=== PATIENT | male | born 1970 | race Caucasian/White ===

== ENCOUNTER 2022-11-16 19:57 | Inpatient (IN) | payer BC, OTHER, SELFPAY ==
--- OUTSIDE RECORDS SUMMARY | 2022-11-16 20:01 | XMS REPORT | Continuity of Care Document ---
:1970 Author Organization [facility] t Address [address] [place] [address] [place] [address] Care Team Providers Name Role Phone DR JOHN PAUL VILCHIS PACIFICA Primary Care Physician Unavailable TRINITY BRAY Attending Clinician Unavailable BAO METCALF Attending Clinician Unavailable NATE ROD Attending Clinician Unavailable MAME, DR COKER Attending Clinician Unavailable TRINITY BRAY Admitting Clinician Unavailable BAO METCALF Admitting Clinician Unavailable NATE ROD Admitting Clinician Unavailable DR JOHN PAUL VILCHIS Admitting Clinician Unavailable GAYATRI FITZPATRICK Admitting Clinician Unavailable TERRANCE VALERIO Admitting Clinician Unavailable Payers Payer Name Policy Type Policy Number Effective Date Expiration Date Keely disla [id number] 1961 00:00:00 Problems Condition Condition Condition Status Onset Resolution Last Treating Co mments Source Name Details Category Date Date Treatment Clinician Date Chronic Chronic Problem Active 2019-[address] [facility] obstructiv obstructiv 0-18 [facility] e lung 00:00: Memoria disease disease 00 l (LUF/LI V/SA) Acute Acute Problem Active 2018-[address] [facility] exacerbati exacerbati 2-26 [facility] of on of 00:00: Memoria chronic chronic 00 l obstructiv obstructiv (L UF/LI e airways e airways V/SA ) disease disease Influenza Influenza Problem Active 2016-[address] [facility] (LUF/LI V/SA) Acute Acute Problem Active [facility] exacerb[facility] exacerbati 6-03 [facility] of on of 00:00: Memoria chronic chronic 00 l obstructiv obstructiv (L UF/LI e airways e airways V/SA ) disease disease Bronchitis Bronchitis Problem Active [facility] (LUF/LI V/SA) Allergies, Adverse Reactions, Alerts Allergy Allergy Status Severity Reaction(s) Onset Inactive Treating Comm ents Source Name Type Date Date Clinician No Known DA Active Unknown [facility] 03[facility]09 [facility] Mem[facility] s 00 l (LUF/LI V/SA) Social History Smoking Status Start Date Stop Date Source Former smoker [facility] orial (LUF/RYNE/SA) Medications Ordered Filled Start Stop Current Ordering Indication Dosage Frequency Signature Comments Components Source Medication Medication Date Date Medication? Clinician (SIG) Name Name Doxycycline Doxycycline Yes 100mg 2xD orally [address] [facility] Hyclate Hyclate times per Luke s Oral Oral day Memoria l (LUF/LI V/SA) Prednisone Prednisone Yes 60mg 1xD orally [facility] (administe Memoria r with l food or (LUF/LI milk) V/SA) Doxycycline Doxycycline Yes 100mg [facility]xD [facility] Hyclate Hyclate [facility] l (LUF/LI V/SA) predniSONE predniSONE Yes 60mg 1xD [facility]oria l (LUF/LI V/SA) Doxycycline Doxycycline Yes 100mg 2xD orally [address] [facility] Hyclate Hyclate times per Luke s day Memoria l (LUF/LI V/SA) predniSONE predniSONE Yes 60mg 1xD orally [facility] (administe Memoria r with l food or (LUF/LI milk) V/SA) Doxycycline Doxycycline Yes 100mg [address]xD [facility] Hyclate Hyclate [facility] (LUF/LI V/SA) predniSONE predniSONE Yes 60mg 1xD [facility] l (LUF/LI V/SA) Doxycycline Doxycycline Yes 100mg 2xD orally [address] [facility] Hyclate Hyclate times per Luke s day Memoria l (LUF/LI V/SA) predniSONE predniSONE Yes 60mg 1xD orally [facility] (administe Memoria r with l food or (LUF/LI milk) V/SA) Vital Signs Vital Name Observation Time Observation Value Comments Source Weight 2019-12-25 17:22:00 86.9 KG Height 2019-12-25 17:22:00 177.8 CM Height 2019-03-06 21:30:00 185.42 CM BP Systolic 2019-12-25 19:45:00 117 mm[Hg] [facility] (LUF/RYNE/SA) BP Diastolic 2019-12-25 19:45:00 61 mm[Hg] [facility] (LUF/RYNE/SA) O2% BldC Oximetry 2019-12-25 19:43:00 93 % [facility] (LUF/RYNE/SA) Pulse Rate 2019-12-25 19:43:00 86 /min [facility] (LUF/RYNE/SA) Heart Rate 2019-12-25 18:45:00 101 /min [facility] (LUF/RYNE/SA) Respiratory Rate 2019-12-25 18:45:00 20 /min [facility] (LUF/RYNE/SA) Body Temperature 2019-12-25 17:22:00 99 [degF] [facility] (LUF/RYNE/SA) Height 2019-12-25 17:22:00 70 [in_i] [facility] (LUF/RYNE/SA) Weight 2019-12-25 17:22:00 86.9 kg [facility] (LUF/RYNE/SA) BMI (Body Mass Index) 2019-12-25 17:22:00 27.7 kg/m2 [facility] (LUF/RYNE/SA) Body Temperature 2017-11-24 01:36:00 97.9 F [facility] (LUF/RYNE/SA) Respiratory Rate 2017-11-24 01:36:00 15 /min [facility] (LUF/RYNE/SA) O2% BldC Oximetry 2017-11-24 01:36:00 96 % [facility] (LUF/RYNE/SA) BP Systolic 2017-11-24 01:36:00 131 mm[Hg] [facility] (LUF/RYNE/SA) BP Diastolic 2017-11-24 01:36:00 83 mm[Hg] [facility] (LUF/RYNE/SA) Height 2017-11-24 01:36:00 74 in [facility] (LUF/RYNE/SA) Weight Measured 2017-11-24 01:36:00 207 lbs [facility] (LUF/RYNE/SA) BMI (Body Mass Index) 2017-11-24 01:36:00 26.8 [facility] (LUF/RYNE/SA) Body Temperature 2017-03-09 15:14:00 99.5 F [facility] (LUF/RYNE/SA) Respiratory Rate 2017-03-09 13:56:00 24 /min [facility] (LUF/RYNE/SA) O2% BldC Oximetry 2017-03-09 13:56:00 93 % [facility] (LUF/RYNE/SA) BP Systolic 2017-03-09 13:56:00 102 mm[Hg] [facility] (LUF/RYNE/SA) BP Diastolic 2017-03-09 13:56:00 62 mm[Hg] [facility] (LUF/RYNE/SA) Height 2017-03-09 13:56:00 75 in [facility] (LUF/RYNE/SA) Weight Measured 2017-03-09 13:56:00 210 lbs [facility] (LUF/RYNE/SA) BMI (Body Mass Index) 2017-03-09 13:56:00 26.3 [facility] (LUF/RYNE/SA) Body Temperature 2017-02-02 05:38:00 98.8 F [facility] (LUF/RYNE/SA) Respiratory Rate 2017-02-02 05:38:00 18 /min [facility] (LUF/RYNE/SA) O2% BldC Oximetry 2017-02-02 05:38:00 94 % [facility] (LUF/RYNE/SA) BP Systolic 2017-02-02 05:38:00 119 mm[Hg] [facility] (LUF/RYNE/SA) BP Diastolic 2017-02-02 05:38:00 87 mm[Hg] [facility] (LUF/RYNE/SA) Height 2017-02-02 05:38:00 72 in [facility] (LUF/RYNE/SA) Weight Measured 2017-02-02 05:38:00 209.43 lbs [facility] Keely [facility] (LUF/RYNE/SA) BMI (Body Mass Index) 2017-02-02 05:38:00 28.6 [facility] (LUF/RYNE/SA) Procedures Procedure Date / Time Performed Performing Clinician Sourc e Vasectomy [facility] orial (LUF/RYNE/SA) Encounters Start End Encounter Admission Attending Care Care Encounter Source Date/Time Date/Time Type Type Clinicians Facility Department ID 2022-08-14 2022-08-14 OTHER 3 [facility] [id number] [facility] 07:27:00 23:59:00 CHEST PAIN [facility]ITY [facility] [address] V/SA) [facility] [place] [address] 2022-08-14 2022-08-[address] [facility] [id number] [facility] 00:00:00 00:00:00 [place] [id number] [facility], [id number] Memor ia [id number] (LUF/LI A[address], V/[place]) [place] [address] 2022-08-14 2022-08-14 Inpatient [facility] [id number] [facility] 00:00:00 00:00:00 [place] [id number] [facility], [id number] Memor ia [id number] (LUF/LI AVE, V/[place]) [place] [address] 2022-06-17 2022-06-17 Outpatient 3 JAIRON BRAY GAET [id number] [facility] [address] 08:30:00 08:30:00 TRINITY [facility] l (LUF/LI V/SA) 2022-02-26 2022-02-26 Outpatient 3 JAIRON BRAY GAET [id number] 02:30:00 02:30:00 [facility] [facility] (LUF/LI V/SA) 2019-12-25 2019-12-25 COPD E TEA, [facility] [place] [id number] [facility] 17:08:00 20:21:00 UNSPECIFIE [facility] [place] u[place] [address] (LUF/LI [address], V/[place]) [place] [address] 2018-01-19 2018-01-19 Inpatient 3 MAME, [facility] [place] [address] [id number] [facility] [address] 09:07:00 23:59:00 JOHN PAUL [facility] [address]LUF/LI A[address], V/SA) [place] [address] 2017-11-24 2017-11-24 TYPE 2 DM E JENNRI, [facility] [place] [place] [address] [id number] [facility] [address] 01:25:00 04:00:00 W/HYPERGLY [facility] [address], V/SA) [facility] [place] [address] 2017-03-09 2017-03-09 COPD WITH ADY MARTINEZ [facility] [id number] [facility] [address] 13:21:00 17:06:00 ACUTE [facility] EXACERBATI [facility] ia ON [address] (LUF/LI [address], V/[place]) [place] [address] 2017-02-23 2017-02-23 VOMITING O MAME, [facility] [place] [address] [id number] [facility] [address] 10:39:00 23:59:00 [facility] [address] (LUF/LI [address], V/[place]) [place] [address] 2017-02-02 2017-02-02 NONINFECTI 1 IMAN, [facility] [place] [address] [id number] [facility] [address] 05:19:00 06:55:00 VE GE & TERRANCE [facility] COLITIS [place], [facility] UNS [address] (LUF/LI [address], V/SA) [place] [address] Results Test Description Test Time Test Comments Results Result Sour e Comments XR CHEST AP/PA 1 2019-12-25 [facility] 18:17:57 CHARLEY Riggs [facility]Name: JANNET ATKINSON : [id number] Sex: M *Procedures: XR CHEST AP/PA 1 VIEWExam Date: 12/25/2019 5:28 PMOrdering Physician: MARTHA WEAVERClinical Indication: [id number]: DyspneaComparison: Chest radiograph 03/06/19Findings:Skyler hnique: Single frontal portable radiograph of the chest.Medical devices: EKG leads and wires overlie the thorax.Pneumothorax: No pneumothorax.Lungs: Emphysematous changes of the lungs. No focal consolidation.Effusi on: None.Aorta: No significant abnormality.Heart: No acute radiographic abnormalities.Bones: Degenerative changes of the shoulders and spine.Upper abdomen: Limited evaluation is without significant abnormality.Impressi on:Emphysematous changes of lungs. No acute radiographic abnormalities.This final report was electronically signed by Dr Rosette Pederson MD12/25/2019 6:11 PMDictated By: ROSETTE OJEDADate: 12/25/2019 18:11 STAT LAB CHEM 8 2019-12-25 17:58:00 Test Item Value Reference Range Interpretation Comme nts Sodium (test code = NA) 141 mmol/l 138-146 Potassium (test code = K) 4.0 mmol/l 3.5-4.9 Chloride (test code = CL) 103 mmol/l 98-109 IONIZED CALCIUM (test code = ICA) 1.18 1.12-1.32 A CO2 (test code = CO2) 25 mmol/l 24-29 Glucose (test code = GLU) 234 mg/dl 70-105 H BUN (test code = BUN) 12 mg/dl 6-17 Creatinine (test code = CREA) 1.0 mg/dl 0.6-1.3 [facility] LAB CBC WITH AUTO [id number] 17:57:00 Test Item Value Reference Range Interpretation Comments WBC (test code = WBC) 6.62 10\\S\\3/ul 4.80-10.80 RBC (test code = RBC) 5.11 10\\S\\6/ul 4.70-6.10 Hemoglobin (test code = HGB) 15.8 gm/dl 14.0-18.0 Hematocrit (test code = HCT) 45.1 % 42.0-50.0 MCV (test code = MCV) 88.3 fL 80.0-94.0 MCH (test code = MCH) 30.9 pg 27.0-31.0 MCHC (test code = MCHC) 35.0 gm/dl 33.0-37.0 Platelet (test code = PLT) 215 10\\S\\3/ul 130-400 RDW (test code = RDWVC) 12.2 % 11.5-14.5 MPV (test code = MPV) 9.8 fL 7.4-10.4 A NE% (test code = NE) 59.2 % 42.0-75.0 LY% (test code = LY) 21.6 % 13.0-42.0 MO% (test code = MO) 12.4 % 4.0-14.0 EO% (test code = EO) 6.0 % 1.0-3.0 H BA% (test code = BA) 0.6 % 1.0-3.0 L IG% (test code = IG%) 0.2 % 0.0-0.4 [place] [address] TROPONIN-I [id number] 23:23:00 Test Item Value Reference Range Interpretation Comments Troponin-I (test 0.000 ng/ml 0.000-0.034 The 99th Pe rcentile URL code = TROP) is 0.045 ng/mL for the Siemens Seymour T roponin I. The Joint [facility] mervin Society of Cardiology/veronica uab medical westn College of Card iology (ESC/ACC) and t he [facility] monse Standards of La boratory Practices (NACB ) recommends that the diagnosis of AM I includes the presence of clinical history suggest alex of Acute Coronary Syndrome (ACS) and a max imum concentration o f cardiac troponin exceed ing the 99th percentile of a normal referenc e population [upp er reference limit (URL)] on at least one oc casion during the firs t 24 hours after the clini kellen event. [facility] ANGIO CHEST W [id number] 22:39:23 PROCEDURE INFORMATION:Exam: CT Angiography Chest With ContrastExam date and time: 03/06/2019 9:57 PMAge: 48 years oldClinical indication: Shortness of breath; Patient HX: Copd, smokerTECHNIQUE:Imaging protocol: Computed tomographic angiography of the chest withintravenous contrast.3D rendering: MIP and/or 3D reconstructed images were created by thetechnologist.Radiation optimization: All CT scans at this facility use at least one of thesedose optimization techniques: automated exposure control; mA and/or kVadjustment per patient size (includes targeted exams where dose is matched toclinical indication); or iterative reconstruction.Contrast material: OMNI 350; Contrast volume: 100 ml; Contrast route: IV;COMPARISON:CT ANGIO CHEST W/WO CONTRAST 08/10/2015 2:31 PMFINDINGS:Pulmonary arteries: Normal. Nopulmonary emboli.Aorta: Unremarkable. No aortic aneurysm. No aortic dissection.Lungs: Moderate centrilobular emphysematous disease. Poorly defined small areaof groundglass disease in the right upper lobe.Pleural space: Unremarkable. No pneumothorax. No pleural effusion.Heart: Unremarkable. No cardiomegaly. No pericardial effusion.Lymph nodes: Unremarkable. No enlarged lymph nodes.Bones/joints: Unremarkable. No acute fracture.Soft tissues: The soft tissues of the axilla, neck and chest wall areunremarkable.Other findings: The visualized superior portions of the abdomen areunremarkable.IMPRESSION:Moderate centrilobular emphysematous disease. No evidence of pulmonary embolus.Faint area of groundglassdisease in the right upper lobe. Followup chest CT in6 months recommendedThis Final report was electr onically signed by Richi Sinha MD on 06 Mar 201910:39 PM CDT.Dictated By: RICHI SINHADate: 03/06/2019 22:39[facility] [place] [address] XR CHEST 2 PA LATERAL 2019-03-06 22:36:18Procedure: ED2 XR CHEST 2 PA LATERALOrder date: 03/06/2019 9:25 PMOrdering Provider: NATE Guajardoinical Indication: [id number]: CoughComparison: August 10, 2015Findings:Cardiomediastinal silhouette is within normal limits.Flattening of the diaphragm with increased AP diameter of the chest, compatiblewithmorphologic changes seen in COPD. Otherwise, no asymmetric consolidationsor other airspace opacities.No pleural effusion or pneumothorax. Osseous structures are nonacute.No evidence of active tuberculosis.Impression:1. No acute cardiopulmonary process.2. COPD.This final report was electronically signed by Dr Letty Rod MD 03/06/201910:29 PMDictated By: LETTY RODDate: 03/06/2019 22:29[facility] [place] [address] [id number] 21:56:00 Test Item Value Reference Range Interpretation Comments Sodium (test code = NA) 142 mmol/l 128-145 Potassium (test code = K) 3.5 mmol/l 3.6-5.1 L CO2 (test code = CO2) 29 mmol/l 18-33 Chloride (test code = CL) 103 mmol/l 98-108 Glucose (test code = GLU) 146 mg/dl 73-118 H Calcium (test code = CALC) 9.4 mg/dl 8.0-10.3 BUN (test code = BUN) 8 mg/dl 7-22 Creatinine (test code = CREA) 1.1 mg/dl 0.6-1.2 [facility] [id number] 21:47:00 Test Item Value Reference Range Interpretation Comments WBC (test code = WBC) 12.2 10\\S\\9/L 3.5-10.0 H LY% (test code = LY) 18.3 % 15.0-50.0 MIDS% (test code = MIDS) 5.6 % 2.0-15.0 Granulocytes % (test code = 76.1 % 35.0-80.0 GRA%) Lymphocytes (test code = 2.2 10\\S\\9/L 0.5-5.0 LYMPH) MID (test code = MID) 0.7 10\\S\\9/L 0.1-1.5 Granulocytes (test code = 9.3 10\\S\\9/L 1.2-8.0 H GRAN) RBC (test code = RBC) 5.18 10\\S\\12/L 3.50-5.50 Hemoglobin (test code = HGB) 15.3 gm/dl 11.5-16.5 Hematocrit (test code = HCT) 46.6 % 35.0-55.0 MCV (test code = MCV) 89.9 fL 75.0-100.0 MCH (test code = MCH) 29.6 pg 25.0-35.0 MCHC (test code = MCHC) 32.9 gm/dl 31.0-38.0 RDW % (test code = RDW%) 13.7 % 11.0-16.0 Platelet (test code = PLT) 249 10\\S\\9/L 100-400 MPV (test code = MPV) 8.6 fL 8.0-11.0 A [facility] FLU [id number] 21:45:00 Test Item Value Reference Range Interpretation Comments Flu A Screen (test code = FLUA) Negative Flu B Screen (test code = FLUB) Negative [facility] HEAD W/O [id number] 11:30:43 Procedure: TIC CT HEAD W/O CONTRASTOrder date: 01/19/2018 9:00 AMOrdering Provider: MR TAIWO ROWELLATTClinical Indication: October 29, 2012Comparison: NoneTechnique: Using a helical scanner, sequential axial imaging of the brain wasobtained without the administration of intravenous contrast. The exam wasob tained from the skull base to vertex.This exam was performed according to the our departmental dose-optimizationprogram which includes automated exposure control, adjustment of the mA and/orkV according to patient size and/or use of iterative reconstruction techniques.Findings:Normal-appearing sy and white matter with appropriate sulcation and normalparenchymal volume.There is no midline shift or hydrocephalus.There is no acute intracranial hemorrhage or mass effect.There is no CT evidence for acute cortical infarct.The calvarium is intact. There is no fracture.There is no lytic or sclerotic lesion.The visualized paranasal sinuses and mastoid air cells are clear.IMPRESSION:1. Negative CT scan ofthe brain without intravenous contrast administration.This final report was electronically signed byDr Letty Rod MD 01/19/201811:24 AMDictated By: LETTY RODDate: 01/19/2018 11:24MM OF [address] 2017-11-24 03:49:00 Test Item Value Reference Range Interpretation Comments Sodium (test code = NA) 138 mmol/l 128-145 Potassium (test code = K) 4.5 mmol/l 3.6-5.1 CO2 (test code = CO2) 28 mmol/l 18-33 Chloride (test code = CL) 99 mmol/l 98-108 Glucose (test code = GLU) 287 mg/dl 73-118 H Calcium (test code = CALC) 8.8 mg/dl 8.0-10.3 BUN (test code = BUN) 15 mg/dl 7-22 Creatinine (test code = CREA) 1.1 mg/dl 0.6-1.2 [facility] [id number] 03:47:00 Test Item Value Reference Range Interpretation Comments WBC (test code = WBC) 12.3 10\\S\\9/L 3.5-10.0 H LY% (test code = LY) 11.5 % 15.0-50.0 L MIDS% (test code = MIDS) 3.3 % 2.0-15.0 Granulocytes % (test code = 85.2 % 35.0-80.0 H GRA%) Lymphocytes (test code = 1.4 10\\S\\9/L 0.5-5.0 LYMPH) MID (test code = MID) 0.4 10\\S\\9/L 0.1-1.5 Granulocytes (test code = 10.5 10\\S\\9/L 1.2-8.0 H GRAN) RBC (test code = RBC) 5.13 10\\S\\12/L 3.50-5.50 Hemoglobin (test code = HGB) 15.3 gm/dl 11.5-16.5 Hematocrit (test code = HCT) 44.6 % 35.0-55.0 MCV (test code = MCV) 87.0 fL 75.0-100.0 MCH (test code = MCH) 29.9 pg 25.0-35.0 MCHC (test code = MCHC) 34.4 gm/dl 31.0-38.0 RDW % (test code = RDW%) 13.8 % 11.0-16.0 Platelet (test code = PLT) 238 10\\S\\9/L 100-400 MPV (test code = MPV) 8.7 fL 8.0-11.0 A [place] [address] VENOUS BLD [id number] 03:44:00 Test Item Value Reference Range Interpretation Comments pH (VBG) (test code = VGPH) 7.28 7.33-7.43 L PCO2 (VBG) (test code = VGPCO2) 58 mm Hg 40-50 H P02 (VBG) (test code = VGPO2) 35 mm Hg 29-49 HCO3 (VBG) (test code = VGHCO3) 27 mmol/l 22-29 TCO2 (VBG) (test code = VGTCO2) 29 mmol/l 22-34 O2 SAT% (VBG) (test code = 59 % 60-85 L [id number]) BASE EXCESS (VBG) (test code = 0 mmol/l VGBASE) LACTIC ACID (VBG) (test code = 1.81 mmol/l 0.90-1.70 H VLAC) [facility] [id number] 02:23:00 Test Item Value Reference Range Interpretation Comments Sodium (test code = NA) 137 mmol/l 128-145 Potassium (test code = K) 4.9 mmol/l 3.6-5.1 CO2 (test code = CO2) 27 mmol/l 18-33 Chloride (test code = CL) 96 mmol/l 98-108 L Glucose (test code = GLU) 401 mg/dl 73-118 H Calcium (test code = CALC) 9.8 mg/dl 8.0-10.3 BUN (test code = BUN) 16 mg/dl 7-22 Creatinine (test code = CREA) 0.9 mg/dl 0.6-1.2 Alkaline Phos (test code = ALKP) 139 U/L 42-141 ALT (SGPT) (test code = ALT) 121 U/L 10-47 H AST (SGOT) (test code = AST) 63 U/L 11-38 H Total Bilirubin (test code = TBIL) 0.5 mg/dl 0.2-1.6 Albumin (test code = ALB) 3.9 gm/dl 3.3-5.5 T Protein (test code = TP) 7.3 gm/dl 6.4-8.1 [facility] [id number] 02:17:00 Test Item Value Reference Range Interpretation Comments WBC (test code = WBC) 13.4 10\\S\\9/L 3.5-10.0 H LY% (test code = LY) 9.8 % 15.0-50.0 L MIDS% (test code = MIDS) 2.3 % 2.0-15.0 Granulocytes % (test code = 87.9 % 35.0-80.0 H GRA%) Lymphocytes (test code = 1.3 10\\S\\9/L 0.5-5.0 LYMPH) MID (test code = MID) 0.4 10\\S\\9/L 0.1-1.5 Granulocytes (test code = 11.7 10\\S\\9/L 1.2-8.0 H GRAN) RBC (test code = RBC) 5.76 10\\S\\12/L 3.50-5.50 H Hemoglobin (test code = HGB) 17.1 gm/dl 11.5-16.5 H Hematocrit (test code = HCT) 50.4 % 35.0-55.0 MCV (test code = MCV) 87.4 fL 75.0-100.0 MCH (test code = MCH) 29.6 pg 25.0-35.0 MCHC (test code = MCHC) 33.9 gm/dl 31.0-38.0 RDW % (test code = RDW%) 13.8 % 11.0-16.0 Platelet (test code = PLT) 266 10\\S\\9/L 100-400 MPV (test code = MPV) 8.9 fL 8.0-11.0 A [facility] VENOUS BLD [id number] 02:13:00 Test Item Value Reference Range Interpretation Comments pH (VBG) (test code = VGPH) 7.39 7.33-7.43 PCO2 (VBG) (test code = VGPCO2) 45 mm Hg 40-50 P02 (VBG) (test code = VGPO2) 42 mm Hg 29-49 HCO3 (VBG) (test code = VGHCO3) 27 mmol/l 22-29 TCO2 (VBG) (test code = VGTCO2) 28 mmol/l 22-34 O2 SAT% (VBG) (test code = 76 % 60-85 [id number]) BASE EXCESS (VBG) (test code = 2 mmol/l VGBASE) LACTIC ACID (VBG) (test code = 2.23 mmol/l 0.90-1.70 H VLAC) [facility]tonCLOSTRIDIUM DIFFICILE [id number] 11:34:00 Test Item Value Reference Range Interpretation Comments Clostridium difficile Negative Negative N Specim ens yielding a Assay (test code = INDETERMI NANT result CDA) will be repeate d utilizing a Mol ecular method. [facility]tonCULT[facility], [id number] 08:40:00Specimen: StoolCollected: 02/23/2017 15:45 Status: Final Last Updated: 02/26/2017 08:40 Campy Antigen (Final) (Final) Absence of Campylobacter antigen Culture Result (Final) (Final) Negative For Salmonella & Shigella Normal Fecal [place] Isolated No [facility] COMPLETE 2017-02-23 13:41:51Procedure: US ABDOMEN COMPLETEExam Date: 02/23/2017 10:40 AMOrdering Provider: MR MARAVILLA SORINATTClinical Indication: Vomiting, abdominal painComparison: Gallbladder ultrasound on October 10, 2010Technique: Real-time ultrasonography was obtained over the abdominal viscera andrepresentative images were recorded.Findings:The liver is normal in size and contour.There is diffuse increased echogenicity of theliver consistent with fattyinfiltration.There are no intrahepatic masses.There is no intrahepatic ductal dilatation.The gallbladder is normal in size and appearance.There are no gallstones.There is no gallbladder wall thickening or pericholecystic fluid.The extrahepatic common duct is normal in size measuring 2 mm.The spleen is normal in size and contour. There is normal internal echogenicityof the spleen. There are no splenic masses.The visualized portions of the pancreas are normal.The aorta has anormal appearance.The inferior vena cava has a normal appearance.The right kidney is normal in size and contour. Cortical thickness andechogenicity are normal. There are no masses, calculi, or hydronephrosis.The left kidney is normal in size and contour. Cortical thickness andechogenicity are normal. There are no masses, calculi, or hydronephrosis.There is no ascites.The urinary bladder is unremarkable.Impression:1. Hepatic steatosis.2. Otherwise, nonacute complete abdominal ultrasound.This final report was electronically signed by Dr Letty Rod MD 02/23/20171:35 PMDictated By: LETTY RODDate: 02/23/2017 13:[address] [id number] 11:42:00 Test Item Value Reference Range Interpretation Comments Glucose (test code 165 mg/dl 75-110 H = GLU) BUN (test code = 18.0 mg/dl 6.0-17.0 H BUN) Creatinine (test 1.3 mg/dl 0.4-1.2 H code = CREA) Sodium (test code = 139 mmol/l 137-145 NA) Potassium (test 4.4 mmol/l 3.5-5.0 code = K) Chloride (test code 99 mmol/l 98-107 = CL) CO2 (test code = 31 mmol/l 22-30 H CO2) Calcium (test code 9.6 mg/dl 8.4-10.2 = CALC) T Protein (test 7.4 gm/dl 5.1-8.7 code = TP) Albumin (test code 4.7 gm/dl 3.5-4.6 H = ALB) A/G Ratio (test 1.7 % 1.1-2.2 code = AGRAT) AST (SGOT) (test 80 U/L 11-36 H code = AST) ALT (SGPT) (test 106 U/L 11-40 H code = ALT) Alkaline Phos (test 79 U/L 47-114 code = ALKP) Total Bilirubin 1.0 mg/dl 0.2-1.2 (test code = TBIL) Globulin (test code 2.7 gm/dl 2.3-3.5 = GLOBU) Calcium, Corrected 9.0 mg/dl 8.4-10.2 Various f ormulas exist (test code = for corrected s elva CALCCORR) calcium results , each yielding differ ent values. This co rrected result was base d on the formula: Co rrected Calcium = Serum Calcium + [0.8 * ( 4 - SerumAlbumin)] EGFR if >60 British (test code mL/min/1.73m\\ = EGFRAA) S\\2 EGFR if Non- >60 Estimate d Glomerular British (test code mL/min/1.73m\\ Filtrat ion Rate (eGFR) = EGFRNA) S\\2 Reference Inter vals Decision Points for 18 years and older and average body ma ss: >= 60 Does not exc lude kidney disease. 30 - 59 Suggests mo derate chronic kidney disease and indicates t he need for further investigation including asses sment of proteinuria and cardiovascular factors. < 30 U sually indicates a nee d for referral for assessment and management of c hronic kidney failure. [facility] SystemkinAMYLASE, [id number] 11:42:00 Test Item Value Reference Range Interpretation Comments Amylase (test code = AMYL) 66 U/L 12-103 [facility]tonLIPASE, [id number] 11:42:00 Test Item Value Reference Range Interpretation Comments Lipase (test code = LIPA) 39 U/L 8-223 [facility]tonCB WITH AUTO [id number] 11:11:00 Test Item Value Reference Range Interpretation Comments WBC (test code = 7.81 10\\S\\3/ul 4.80-10.80 WBC) RBC (test code = 5.70 10\\S\\6/ul 4.70-6.10 RBC) Hemoglobin (test 17.3 gm/dl 14.0-18.0 code = HGB) Hematocrit (test 50.1 % 42.0-50.0 H code = HCT) MCV (test code = 87.9 fL 80.0-94.0 MCV) MCH (test code = 30.4 pg 27.0-31.0 MCH) MCHC (test code = 34.5 gm/dl 33.0-37.0 MCHC) RDW (test code = 12.6 % 11.5-14.5 RDWVC) Platelet (test code 239 10\\S\\3/ul 130-400 = PLT) MPV (test code = 10.4 fL 7.4-10.4 A "NOT MEASUR ED" MPV) RESULTS ARE DIS PLAYED WHEN THE INSTRU MENT HAS A SUPPRESSE D OR UNREPORTABLE RE SULT. THIS WILL MOST OFTEN HAPPEN WITH THE MPV WHEN THERE IS A N ABNORMAL PLATEL ET DISTRIBUTION DU E TO A CRITICAL LOW VA LUE OR PLATELET CLUMPI NG. THE RDW MAY BE SUPPRESSED IF T HERE ARE MULTIPLE PE AKS PRESENT ON THE RBC HISTOGRAM. IN T HIS CASE, A MANUAL REVIEW OF THE SLIDE WI LL BE PERFORMED, AND RBC MORPHOLOGY WILL BE NOTED ON THE RE PORT. NE% (test code = 62.4 % 42.0-75.0 NE) LY% (test code = 21.6 % 13.0-42.0 LY) MO% (test code = 9.6 % 4.0-14.0 MO) EO% (test code = 5.5 % 1.0-3.0 H EO) BA% (test code = 0.4 % 1.0-3.0 L BA) IG% (test code = 0.5 % 0.0-0.4 H IG%) [facility] (KUB)2017-02-02 09:15:12 Procedure: XR ABDOMEN 1 VIEW (KUB)Exam date: 02/02/2017 5:51 AMOrdering Provider: TERRANCE Headleyinical Indication: Abdominal painComparison: NoneFindings:There is no small or large bowel distention.There is no pneumoperitoneum.There are no suspicious calcifications.There is no skeletal abnormality.Impression:1. Negative single view abdomen.This final report was electronically signed by Dr Letty Rod MD 02/02/20179:09 AMDictated By: LETTY RODDate: 02/02/2017 09:15[facility]ITALURINALYSIS WITH [id number] 06:49:00 Test Item Value Reference Range Interpretation Comments Color (test code = UCOLR) YELLOW Clarity (test code = CLEAR UCLAR) Glucose (test code = NEGATIVE NEGATIVE N UGLUC) Bilirubin (test code = MODERATE NEGATIVE A UBILI) Ketones (test code = TRACE NEGATIVE A UKET) Specific [place] (test >=1.030 1.005-1.030 A code = USPGR) Blood (test code = UBLD) NEGATIVE NEGATIVE N PH (test code = UPH) 5.0 4.5-8.0 A Protein (test code = 100 NEGATIVE A UPROT) Urobilinogen (test code = 1.0 >0.2 A U UROB) Nitrite (test code = POSITIVE NEGATIVE A UNITR) Leukocyte Esterase (test NEGATIVE NEGATIVE N code = ULEUK) WBC (test code = WBCUR) 0-1 0-5 A RBC (test code = RBCUR) 0-1 0-5 A Epithial Cells (test code 0-1 0-10 A = U EPI) Mucous (test code = UMUC) Large None Seen A Bacteria (test code = 2+ None Seen,Trace A UBACT) Urine Casts (test code = Few Hyaline Casts None Seen A UR CAST) Few Fine Granular Casts [facility]-[id number] 06:36:00 Test Item Value Reference Range Interpretation Comments Glucose (test code 174 mg/dl 75-110 H = GLU) BUN (test code = 19.0 mg/dl 6.0-17.0 H BUN) Creatinine (test 1.1 mg/dl 0.4-1.2 code = CREA) Sodium (test code = 144 mmol/l 137-145 NA) Potassium (test 3.9 mmol/l 3.5-5.0 code = K) Chloride (test code 103 mmol/l 98-107 = CL) CO2 (test code = 28 mmol/l 22-30 CO2) Calcium (test code 9.5 mg/dl 8.4-10.2 = CALC) T Protein (test 7.3 gm/dl 5.1-8.7 code = TP) Albumin (test code 4.6 gm/dl 3.5-4.6 = ALB) A/G Ratio (test 1.7 % 1.1-2.2 code = AGRAT) AST (SGOT) (test 82 U/L 11-36 H code = AST) ALT (SGPT) (test 109 U/L 11-40 H code = ALT) Alkaline Phos (test 80 U/L 47-114 code = ALKP) Total Bilirubin 1.1 mg/dl 0.2-1.2 (test code = TBIL) Globulin (test code 2.7 gm/dl 2.3-3.5 = GLOBU) Calcium, Corrected 9.0 mg/dl 8.4-10.2 Various f ormulas exist (test code = for corrected s elva CALCCORR) calcium results , each yielding differ ent values. This co rrected result was base d on the formula: Co rrected Calcium = Serum Calcium + [0.8 * ( 4 - SerumAlbumin)] EGFR if >60 British (test code mL/min/1.73m\\ = EGFRAA) S\\2 EGFR if Non- >60 Estimate d Glomerular British (test code mL/min/1.73m\\ Filtrat ion Rate (eGFR) = EGFRNA) S\\2 Reference Inter vals Decision Points for 18 years and older and average body ma ss: >= 60 Does not exc lude kidney disease. 30 - 59 Suggests mo derate chronic kidney disease and indicates t he need for further investigation including asses sment of proteinuria and cardiovascular factors. < 30 U sually indicates a nee d for referral for assessment and management of c hronic kidney failure. [facility]tonLIPASE, [id number] 06:36:00 Test Item Value Reference Range Interpretation Comments Lipase (test code = LIPA) 107 U/L 8-223 [facility] WITH AUTO [id number] 06:17:00 Test Item Value Reference Range Interpretation Comments WBC (test code = 9.78 10\\S\\3/ul 4.80-10.80 WBC) RBC (test code = 5.54 10\\S\\6/ul 4.70-6.10 RBC) Hemoglobin (test 16.7 gm/dl 14.0-18.0 code = HGB) Hematocrit (test 48.7 % 42.0-50.0 code = HCT) MCV (test code = 87.9 fL 80.0-94.0 MCV) MCH (test code = 30.1 pg 27.0-31.0 MCH) MCHC (test code = 34.3 gm/dl 33.0-37.0 MCHC) RDW (test code = 12.6 % 11.5-14.5 RDWVC) Platelet (test code 251 10\\S\\3/ul 130-400 = PLT) MPV (test code = 10.2 fL 7.4-10.4 A "NOT MEASUR ED" MPV) RESULTS ARE DIS PLAYED WHEN THE INSTRU MENT HAS A SUPPRESSE D OR UNREPORTABLE RE SULT. THIS WILL MOST OFTEN HAPPEN WITH THE MPV WHEN THERE IS A N ABNORMAL PLATEL ET DISTRIBUTION DU E TO A CRITICAL LOW VA LUE OR PLATELET CLUMPI NG. THE RDW MAY BE SUPPRESSED IF T HERE ARE MULTIPLE PE AKS PRESENT ON THE RBC HISTOGRAM. IN T HIS CASE, A MANUAL REVIEW OF THE SLIDE WI LL BE PERFORMED, AND RBC MORPHOLOGY WILL BE NOTED ON THE RE PORT. NE% (test code = 79.5 % 42.0-75.0 H NE) LY% (test code = 9.6 % 13.0-42.0 L LY) MO% (test code = 8.4 % 4.0-14.0 MO) EO% (test code = 1.7 % 1.0-3.0 EO) BA% (test code = 0.3 % 1.0-3.0 L BA) IG% (test code = 0.5 % 0.0-0.4 H IG%) [facility] Notes Date/Time Note Provider Source 2019-12-25 20:21:00-00:00 [facility] Discharge Instructions 2 (LUF/LI V/SA) Discharge Diagnosis COPD Important Information Consult your physician or re turn to the Emergency Department immediately if worse, if not better as expected, or if any problems arise. Follow Up Care Yes Important Information Please understand that you have received care on ly on an emergency basis. If your condition does not improve, you should call your personal physician for follow-up care. If you do not have a physician, you may call e referred physician listed. If you have questions about your care or these discharge instructions, you may call the Emergency Department. Please take your discharge paperwork with you t o any follow-up appointments. Follow-Up With: Primary Care Physician Prescriptions Given Via: RX for Prednisone and Doxycycline Printed and given to patient/caregiver. 2017-11-24 04:00:00-00:00 [facility] Discharge Instructions 2 (LUF/LI V/SA) Discharge Diagnosis hyperglycemia Important Information Consult your physician or re turn to the Emergency Department immediately if worse, if not better as expected, or if any problems arise. Follow Up Care Yes Important Information Please understand that you have received care on ly on an emergency basis. If your condition does not i mprove, you should call your personal physician for follow-up care. If you do not have a physician, you may call the referred physician listed. If you have questions about your care or these discharge instructions, you may call the Emergency Department. Please take your discharge paperwork with you to any follow-up appointments. Follow Up Care Patient To Schedule Follow-Up With: Primary Care Physician Activity Level As tolerated, unrestricted Diet Diabetic Instructions Provided Patient Teaching Patient education provided 2017-03-09 17:06:00-00:00 [facility] Discharge Instructions 2 (LUF/LI V/SA) Discharge Diagnosis influenza, copd Important Information Consult your physician or re turn to the Emergency Department immediately if worse, if not better as expected, or if any problems arise. Follow Up Care Yes Important Information Please understand that you have received care on ly on an emergency basis. If your condition does not i mprove, you should call your personal physician for follow-up care. If you do not have a physician, you may call the referred physician listed. If you have questions about your care or these discharge instructions, you may call the Emergency Department. Please take your discharge paperwork with you to any follow-up appointments. Follow Up Care Patient To Schedule Follow-Up With: Primary Care Physician Prescriptions Given Via: Printed and given to patient/caregiver. Patient Teaching Patient education provided
[2022-11-16 20:35] LABS: Absolute Lymphocytes (CBC) 0.8 K/uL (0.7-4.9); Hematocrit 42.5 % (39.6-49.0); Lymphocytes % 4.3 % (15.3-44.8); MCV 88.9 fL (80-100); MPV 8.3 fL (7.6-11.3); Platelets 259 thou/uL (152-406); RBC Red Blood Cell Count 4.78 M/uL (4.33-5.43)
[2022-11-16] MEDS ORDERED: KETOROLAC 30 MG/ML INJ ONE (20:41)
[2022-11-16] MEDS ORDERED: MORPHINE 4 MG/ML SYR ONE (20:41)
[2022-11-16] MEDS ORDERED: NA CHLORIDE 0.9% 1,000 ML ONE ×2 (20:41→22:25)
[2022-11-16] MEDS ORDERED: FAMOTIDINE 20 MG/2 ML VIAL IV ONE (20:41)
[2022-11-16] MEDS ORDERED: ONDANSETRON 4 MG/2 ML VIAL ONE (20:41)
[2022-11-16 20:54] LABS: Bilirubin Total 0.6 mg/dL (0.2-1.0); Potassium 3.7 mEq/L (3.5-5.1); Protein, Total 7.4 g/dL (6.4-8.2)
--- NOTE | 2022-11-16 22:05 | RAD REPORT ---
EXAM DESCRIPTION: CT - Abdomen Pelvis W Contrast - 11/16/2022 9:26 pm CLINICAL HISTORY: RLQ abdominal pain COMPARISON: No comparisons TECHNIQUE: Thin cut axial CT imaging of the abdomen and pelvis was performed following intravenous a dministration of 95 mm Isovue 300. Multiplanar reformats were generated and reviewed. All CT scans are performed using dose optimization technique as appropriate and may include automated exposure control or mA/KV adjustment according to patient size. FINDINGS: No suspicious findings in the lung bases. The liver, spleen, adrenal glands, and pancreas show no suspicious findings. Gallbladder and biliary tree are also without suspicious finding. Symmetric renal function is seen with no hydronephrosis or suspicious renal mass. Inflammatory changes adjacent to a mildly dilated and hyperenhancing appendix. Fluid tracking along t he right paracolic gutters. No free air, localized collections, or inflammatory stranding. No hernia, mass or bulky lymphadenopathy. The urinary bladder is without significant finding. No suspicious bony findings. IMPRESSION: Acute appendicitis. Small volume fluid adjacent to the appendix tracking along the right paracolic gutter. No localized fluid collections or free air.
[2022-11-16] MEDS ORDERED: PIPERACIL/TAZO 3.375 GM VIAL IV ONE (22:25)
[2022-11-16] MEDS ORDERED: NA CHLORIDE 0.9% 100 ML ONE (22:25)
[2022-11-16] MEDS ORDERED: FENTANYL CITR 100 MCG/2 ML ONE (23:25)
[2022-11-16 23:28] LABS: Urine Bilirubin NEGATIVE (Negative); Urine Blood Negative (Negative); Urine Clarity Clear (Clear); Urine Color Light-Yellow (Yellow); Urine Glucose 4+ (Over) (Negative); Urine Protein NEGATIVE (Negative); Urine Urobilinogen Normal (Normal)
[2022-11-16 23:40] LABS: Specific Gravity > 1.035 (1.005-1.030)
--- NOTE | 2022-11-16 23:42 | ER ---
Nurse's Notes [facility] Name: Frank Samuel Age: 52 yrs Sex: Male : 1970 Arrival Date: 11/16/2022 Time: 19:57 Bed 16 Private MD: Diagnosis: Unspecified acute appendicitis;Acute nonperforated appendicitis Presentation: 11/16 20:03 Chief complaint: EMS states: called out for RLQ pain and shortness of breath. SOB has as6 now resolved after at home breathing tx. Coronavirus screen: At this time, the client does not indicate any symptoms associated with coronavirus-19. Ebola Screen: No symptoms or risks identified at this time. Initial Sepsis Screen: Does the patient meet any 2 criteria? No. Patient's initial sepsis screen is negative. Does the patient have a suspected source of infection? No. Patient's initial sepsis screen is negative. Risk Assessment: Do you want to hurt yourself or someone else? Patient reports no desire to harm self or others. Onset of symptoms was November 16, 2022. 20:03 Acuity: [place] 3 as6 20:03 Method Of Arrival: EMS: [facility] as6 Historical: - Allergies: 20:06 No Known Allergies; as6 - Home Meds: 21:02 tamsulosin 0.4 mg oral capsule daily [Active]; aspirin 81 mg Oral capsule daily lg3 [Active]; atorvastatin 20 mg oral tablet daily [Active]; Januvia 100 mg oral tablet daily [Active]; Synjardy XR 10-1,000 mg oral tablet,immed \T\ ext release,biphasic 24hr every morning [Active]; isosorbide mononitrate 30 mg Oral Tablet, Extended Release 24 hr every morning [Active]; Trelegy Ellipta 100-62.5-25 mcg inhalation Blister, With Inhalation Device [Active]; albuterol sulfate 90 mcg/actuation Inhl HFA Aerosol Inhaler [Active]; - PMHx: 20:06 Chronic obstructive lung disease; Asthma; Diabetes mellitus; as6 - PSHx: 20:06 None; as6 - Immunization history:: Adult Immunizations up to date. - Social history:: Smoking status: Patient reports the use of cigarette tobacco products, smokes one pack cigarettes per day. - Family history:: not pertinent. Screenin:10 [facility] ED Fall Risk Assessment (Adult) History of falling in the last 3 months, lg3 including since admission No falls in past 3 months (0 pts). Abuse screen: Denies threats or abuse. Denies injuries from another. Nutritional screening: No deficits noted. Tuberculosis screening: No symptoms or risk factors identified. Assessment: 20:10 General: Appears in no apparent distress. uncomfortable, Behavior is calm, cooperative. lg3 Pain: Complains of pain in right lower quadrant Pain currently is 8 out of 10 on a pain scale. Pain began suddenly, Also complains of shortness of breath. Neuro: No deficits noted. Bowser Agitation-Sedation Scale (RASS): 0 - Alert and Calm Level of Consciousness is awake, alert, obeys commands, Oriented to person, place, time, situation. Cardiovascular: No deficits noted. Denies chest pain, Capillary refill < 3 seconds Clubbing of nail beds is absent JVD is absent Patient's skin is warm and dry. Respiratory: No deficits noted. Reports shortness of breath with episodes of pain. GI: Abdomen is round non-distended, Abd is soft X 4 quads Abdomen is tender to palpation in right lower quadrant Reports lower abdominal pain. : No deficits noted. No signs and/or symptoms were reported regarding the genitourinary system. EENT: No deficits noted. No signs and/or symptoms were reported regarding the EENT system. Derm: No deficits noted. No signs and/or symptoms reported regarding the dermatologic system. Skin is intact, is healthy with good turgor, Skin is dry, Skin is normal, Skin temperature is warm. Musculoskeletal: No deficits noted. No signs and/or symptoms reported regarding the musculoskeletal system. Circulation, motion, and sensation intact. Range of motion: intact in all extremities. 21:07 Reassessment: Patient appears in no apparent distress at this time. No changes from lg3 previously documented assessment. Patient and/or family updated on plan of care and expected duration. Pain level reassessed. Patient is alert, oriented x 3, equal unlabored respirations, skin warm/dry/pink. 23:09 Reassessment: Patient appears in no apparent distress at this time. No changes from lg3 previously documented assessment. Patient and/or family updated on plan of care and expected duration. Pain level reassessed. Patient is alert, oriented x 3, equal unlabored respirations, skin warm/dry/pink. 23:25 Pain: Complains of pain in right lower quadrant Pain currently is 8 out of 10 on a pain lg3 scale. Vital Signs: 20:03 BP 180 / 90; Pulse 90; Resp 18 S; Temp 100.6(TE); Pulse Ox 94% on R/A; Weight 81.65 kg as6 (R); Height 6 ft. 2 in. (R); Pain 3/10; 20:10 BP 143 / 74; Pulse 89; Resp 19 S; Temp 100.4(O); Pulse Ox 96% on R/A; Weight 81.65 kg lg3 (R); Height 6 ft. 2 in. (R); 21:07 BP 115 / 66; Pulse 96; Resp 17 S; Pulse Ox 94% on R/A; lg3 23:08 BP 120 / 73; Pulse 99; Resp 18 S; Pulse Ox 92% on R/A; lg3 23:15 BP 118 / 63; Pulse 97; Pulse Ox 93% on R/A; lg3 11/17 00:02 BP 117 / 71; Pulse 95; Resp 16 S; Temp 99.1(A); Pulse Ox 93% on R/A; lg3 11/16 20:10 Body Mass Index 23.11 (81.65 kg, 187.96 cm) lg3 11/16 20:03 Pain Scale: Adult as6 ED Course: 11/16 20:03 Patient arrived in ED. as6 20:06 Triage completed. as6 20:06 Arm band placed on. as6 20:10 Patient has correct armband on for positive identification. Placed in gown. Bed in low lg3 position. Call light in reach. Side rails up X 1. Client placed on continuous cardiac and pulse oximetry monitoring. NIBP monitoring applied. quality assurance monitor on. Door closed. Noise minimized. Warm blanket given. Family accompanied patient. 20:10 Maintain EMS IV. Dressing intact. Good blood return noted. Site clean \T\ dry. Gauge \T\ lg 3 site: 18RAC. Patient maintains SpO2 saturation greater than 95% on room air. 20:13 León Mckeon MD is Attending Physician. sp4 20:26 Mahi Sprague RN is Primary Nurse. lg3 21:26 CT Abd/Pelvis - IV Contrast Only In Process Unspecified. EDMS 22:43 Urinalysis w/ reflexes Sent. as6 23:40 Jess Lynch MD is Hospitalizing Provider. sp4 11/17 01:19 SARS RAPID Sent. as6 01:19 No provider procedures requiring assistance completed. Patient admitted, IV remains in as6 place. intact, No redness/swelling at site. Administered Medications: 11/16 20:20 Drug: NS 0.9% IV 1000 ml Route: IV; Rate: 1 bolus; Site: right antecubital; lg3 21:47 Follow up: IV Status: Completed infusion; IV Intake: 1000ml lg3 20:20 Drug: Famotidine IVP 20 mg Route: IVP; Site: right antecubital; lg3 21:47 Follow up: Response: No adverse reaction lg3 20:20 Drug: TORadol - Ketorolac IVP 15 mg Route: IVP; Site: right antecubital; lg3 21:47 Follow up: Response: No adverse reaction; Marked relief of symptoms; Pain is decreased lg3 20:20 Drug: Ondansetron IVP 4 mg Route: IVP; Site: right antecubital; lg3 21:47 Follow up: Response: No adverse reaction lg3 20:20 Drug: morphine IVP or IV 4 mg Route: IVP; Infused Over: 4 mins; Site: right antecubital;lg3 21:47 Follow up: Response: No adverse reaction; Marked relief of symptoms; Pain is decreased lg3 22:26 Drug: NS 0.9% IV 1000 ml Route: IV; Rate: 1 bolus; Site: right antecubital; lg3 23:25 Follow up: IV Status: Completed infusion; IV Intake: 1000ml lg3 22:27 Drug: Piperacillin-Tazobactam IVPB 3.375 grams Route: IVPB; Infused Over: 60 mins; lg3 Site: right antecubital; 23:09 Follow up: Response: No adverse reaction; IV Status: Completed infusion; IV Intake: lg3 100ml 23:25 Drug: fentaNYL (PF) IVP 50 mcg Route: IVP; Site: right antecubital; lg3 11/17 00:06 Follow up: Response: No adverse reaction; Marked relief of symptoms; Pain is decreased lg3 Medication: 01:20 VIS not applicable for this client. as6 Intake: 11/16 21:47 IV: 1000ml; Total: 1000ml. lg3 23:09 IV: 100ml; Total: 1100ml. lg3 23:25 IV: 1000ml; Total: 2100ml. lg3 Outcome: 23:41 Decision to Hospitalize by Provider. sp4 11/17 01:19 Admitted to Med/surg accompanied by nurse, via wheelchair, room 225, Report called to as6 Corine Condition: stable Instructed on the need for admit, Demonstrated understanding of instructions. 01:20 Patient left the ED. as6 Signatures: Dispatcher [employer] EDMahi Villarreal RN RN lg3 Samir Gumsan RN RN as6 León Mckeon MD MD sp4 Corrections: (The following items were deleted from the chart) 00:05 00:02 BP 117 / 71; Pulse 95bpm; Resp 16bpm; Spontaneous; Pulse Ox 93% RA; lg3 lg3
--- NOTE | 2022-11-16 23:42 | EDPHYS ---
Physician Documentation [facility] Name: Frank Samuel Age: 52 yrs Sex: Male : 1970 Arrival Date: 11/16/2022 Time: 19:57 Bed 16 Private MD: ED Physician León Mckeon HPI: 11/16 20:14 This 52 yrs old Male presents to ER via EMS with complaints of abdominal pain sp4 . 23:26 52-year-old male with history of COPD, asthma and diabetes presents with a cute onset sp4 of right lower quadrant abdominal pain. . 23:29 Patient has gone fishing today and 2 hours prior to arrival developed acute right lower sp4 quadrant abdominal pain associated with mild temperature elevation. He developed chills as well , patient is chronically shortness of breath secondary to his COPD. He is not oxygen dependent disease. . Historical: - Allergies: 20:06 No Known Allergies; as6 - Home Meds: 21:02 tamsulosin 0.4 mg oral capsule daily [Active]; aspirin 81 mg Oral capsule daily lg3 [Active]; atorvastatin 20 mg oral tablet daily [Active]; Januvia 100 mg oral tablet daily [Active]; Synjardy XR 10-1,000 mg oral tablet,immed \T\ ext release,biphasic 24hr every morning [Active]; isosorbide mononitrate 30 mg Oral Tablet, Extended Release 24 hr every morning [Active]; Trelegy Ellipta 100-62.5-25 mcg inhalation Blister, With Inhalation Device [Active]; albuterol sulfate 90 mcg/actuation Inhl HFA Aerosol Inhaler [Active]; - PMHx: 20:06 Chronic obstructive lung disease; Asthma; Diabetes mellitus; as6 - PSHx: 20:06 None; as6 - Immunization history:: Adult Immunizations up to date. - Social history:: Smoking status: Patient reports the use of cigarette tobacco products, smokes one pack cigarettes per day. - Family history:: not pertinent. ROS: 23:29 Constitutional: Negative for fever, chills, and weight loss, Abdomen/GI: Positive right sp4 lower quadrant abdominal pain, negative nausea, negative vomiting, negative constipation, negative diarrhea 23:29 All other systems are negative. Exam: 23:29 Constitutional: This is a well developed, well nourished patient who is awake, alert, sp4 and in no acute distress. Head/Face: Normocephalic, atraumatic. Eyes: Pupils equal round and reactive to light, extra-ocular motions intact. Lids and lashes normal. Conjunctiva and sclera are not injected. Cornea within normal limits. Periorbital areas with no swelling, redness, or edema. ENT: Nares patent. No nasal discharge, no septal abnormalities noted. Tympanic membranes are normal and external auditory canals are clear. Oropharynx with no redness, swelling, or masses, exudates, or evidence of obstruction, uvula midline. Mucous membranes moist. Neck: Trachea midline, no thyromegaly or masses palpated, and no cervical lymphadenopathy. Supple, full range of motion without nuchal rigidity, or vertebral point tenderness. Chest/axilla: Normal chest wall appearance and motion. Nontender with no deformity. No lesions are appreciated. Cardiovascular: Regular rate and rhythm with a normal S1 and S2. No gallops, murmurs, or rubs. Normal PMI, no JVD. No pulse deficits. Respiratory: Lungs have equal breath sounds bilaterally, clear to auscultation and percussion. No rales, rhonchi or wheezes noted. No increased work of breathing, no retractions or nasal flaring. Abdomen/GI: Soft, non-tender, with normal bowel sounds. No distension or tympany. No guarding or rebound. No evidence of tenderness throughout. Back: No spinal tenderness. No costovertebral tenderness. Skin: Warm, dry with normal turgor. Normal color with no rashes, no lesions, and no evidence of cellulitis. MS/ Extremity: Pulses equal, no cyanosis. Neurovascular intact. Full, normal range of motion. Neuro: Awake and alert, GCS 15, oriented to person, place, time, and situation. Cranial nerves II-XII grossly intact. Motor strength 5/5 in all extremities. Sensory grossly intact. Psych: Awake, alert, with orientation to person, place and time. Behavior, mood, and affect are within normal limits Vital Signs: 20:03 BP 180 / 90; Pulse 90; Resp 18 S; Temp 100.6(TE); Pulse Ox 94% on R/A; Weight 81.65 kg as6 (R); Height 6 ft. 2 in. (R); Pain 3/10; 20:10 BP 143 / 74; Pulse 89; Resp 19 S; Temp 100.4(O); Pulse Ox 96% on R/A; Weight 81.65 kg lg3 (R); Height 6 ft. 2 in. (R); 21:07 BP 115 / 66; Pulse 96; Resp 17 S; Pulse Ox 94% on R/A; lg3 23:08 BP 120 / 73; Pulse 99; Resp 18 S; Pulse Ox 92% on R/A; lg3 23:15 BP 118 / 63; Pulse 97; Pulse Ox 93% on R/A; lg3 11/17 00:02 BP 117 / 71; Pulse 95; Resp 16 S; Temp 99.1(A); Pulse Ox 93% on R/A; lg3 11/16 20:10 Body Mass Index 23.11 (81.65 kg, 187.96 cm) lg3 11/16 20:03 Pain Scale: Adult as6 MDM: 11/16 20:15 Patient medically screened. sp4 23:41 Differential Diagnosis altered mental status, Diverticulitis, appendicitis, sp4 pancreatitis. Data reviewed: vital signs, nurses notes, EMS record, old medical records, lab test result(s), radiologic studies. Consideration of Admission/Observation Patient was admitted/placed on observation. Escalation of care including admission/observation considered. Management of patient was discussed with the following: Hospitalist: Hospitalist team. Floral Associate: Dr. Zavala with General Surgery . ED course: CT abdomen / pelvis - FINDINGS: No suspicious findings in the lung bases. The liver, spleen, adrenal glands, and pancreas show no suspicious findings. Gallbladder and biliary tree are also without suspicious finding. Symmetric renal function is seen with no hydronephrosis or suspicious renal mass. Inflammatory changes adjacent to a mildly dilated and hyperenhancing appendix. Fluid tracking along the right paracolic gutters. No free air, localized collections, or inflammatory stranding. No hernia, mass or bulky lymphadenopathy. The urinary bladder is without significant finding. No suspicious bony findings. IMPRESSION: Acute appendicitis. Small volume fluid adjacent to the appendix tracking along the right paracolic gutter. No localized fluid collections or free air.. ED course: Patient's CAT scan revealed acute nonperforated appendicitis, patient was accepted by general surgeon who requested admission to internal medicine. . 11/16 20:14 Order name: CBC with Diff; Complete Time: 23:24 sp4 11/16 20:14 Order name: CMP; Complete Time: 23:24 sp4 11/16 20:14 Order name: Lipase; Complete Time: 23:24 sp4 11/16 20:14 Order name: Urinalysis w/ reflexes sp4 11/16 20:15 Order name: Alcohol Level; Complete Time: 23:24 sp4 11/16 23:30 Order name: SARS RAPID sp4 11/16 23:50 Order name: Urinalysis w/ reflexes EDMS 11/16 23:50 Order name: CBC with Automated Diff EDMS 11/16 23:50 Order name: CBC with Automated Diff EDMS 11/16 23:50 Order name: Comprehensive Metabolic Panel EDMS 11/16 23:50 Order name: Comprehensive Metabolic Panel EDMS 11/16 23:50 Order name: Magnesium EDMS 11/16 23:50 Order name: Magnesium EDMS 11/16 23:50 Order name: Protime (+INR) EDMS 11/16 23:50 Order name: Protime (+INR) EDMS 11/16 20:14 Order name: CT Abd/Pelvis - IV Contrast Only; Complete Time: 23:24 sp4 11/16 23:50 Order name: NPO EDMS 11/16 20:14 Order name: IV Saline Lock; Complete Time: 21:05 4 11/16 20:14 Order name: Labs collected and sent; Complete Time: 21:05 sp4 11/16 23:28 Order name: NPO; Complete Time: 00:02 sp4 Administered Medications: 20:20 Drug: NS 0.9% IV 1000 ml Route: IV; Rate: 1 bolus; Site: right antecubital; lg3 21:47 Follow up: IV Status: Completed infusion; IV Intake: 1000ml lg3 20:20 Drug: Famotidine IVP 20 mg Route: IVP; Site: right antecubital; lg3 21:47 Follow up: Response: No adverse reaction lg3 20:20 Drug: TORadol - Ketorolac IVP 15 mg Route: IVP; Site: right antecubital; lg3 21:47 Follow up: Response: No adverse reaction; Marked relief of symptoms; Pain is decreased lg3 20:20 Drug: Ondansetron IVP 4 mg Route: IVP; Site: right antecubital; lg3 21:47 Follow up: Response: No adverse reaction lg3 20:20 Drug: morphine IVP or IV 4 mg Route: IVP; Infused Over: 4 mins; Site: right antecubital;lg3 21:47 Follow up: Response: No adverse reaction; Marked relief of symptoms; Pain is decreased lg3 22:26 Drug: NS 0.9% IV 1000 ml Route: IV; Rate: 1 bolus; Site: right antecubital; lg3 23:25 Follow up: IV Status: Completed infusion; IV Intake: 1000ml lg3 22:27 Drug: Piperacillin-Tazobactam IVPB 3.375 grams Route: IVPB; Infused Over: 60 mins; lg3 Site: right antecubital; 23:09 Follow up: Response: No adverse reaction; IV Status: Completed infusion; IV Intake: lg3 100ml 23:25 Drug: fentaNYL (PF) IVP 50 mcg Route: IVP; Site: right antecubital; lg3 11/17 00:06 Follow up: Response: No adverse reaction; Marked relief of symptoms; Pain is decreased lg3 Disposition Summary: 11/16/22 23:41 Hospitalization Ordered Hospitalization Status: Inpatient Admission sp4 Provider: Jess Lynch4 Location: Telemetry/[facility] (Inpatient) sp4 Condition: Stable sp4 Problem: new sp4 Symptoms: have improved sp4 Bed/Room Type: Standard sp4 Room Assignment: 225(11/16/22 23:56) mw Diagnosis - Unspecified acute appendicitis sp4 - Acute nonperforated appendicitis sp4 Forms: - Medication Reconciliation Form sp4 - SBAR form sp4 - Leadership Thank You Letter sp4 Signatures: Dispatcher [employer] EDDelaney Espino RN RN mw Gibson, Lacie, RN RN lg3 Slawson, Ashby, RN RN as6 León Mckeon MD MD sp4 Corrections: (The following items were deleted from the chart) 11/16 23:56 23:41 sp4 mw
--- NOTE | 2022-11-16 23:45 | P.HP ---
Certification for Inpatient Patient admitted to: Observation With expected LOS: <2 Midnights Patient will require the following post-hospital care: None Practitioner: I am a practitioner with admitting privileges, knowledge of patient current condition, hospital course, and medical plan of care. Services: Services provided to patient in accordance with Admission requirements found in Title 42 Section 412.3 of the Code of Federal Regulations Patient History Date of Service: 11/17/22 Reason for admission: Abdominal pain History of Present Illness: 52-year-old male with a past medical history of BPH, HTN, HLD, COPD, asthma, diabetes type 2, presents to the emergency room with right lower quadrant pain. He reports associated fever, chills, denies vomiting diarrhea. He reports chronic shortness of breath due to asthma, COPD. He reports use of nebulizers as needed, no reported home O2, he has bottles for hypertension,hyperlipidemia but states he does not have high blood pressure or elevated cholesterol. Per the ER nurse patient became hypotensive on morphine IV however tolerated fentanyl for pain without hypotension. He denies chest pain, edema, dizziness, nausea vomiting diarrhea. Plan to admit for acute appendicitis, nonperforated. CT of the abdomen pelvis IMPRESSION: Acute appendicitis. Small volume fluid adjacent to the appendix tracking along the right paracolic gutter. No localized fluid collections or free air. WBCs 19.10, early left shift 88.1, BUN/creatinine, potassium sodium stable. UA 4+ glucose. Allergies morphine Adverse Reaction (Intermediate, Verified 11/17/22 00:21) hypotenion - Past Medical/Surgical History Diabetic: Yes -: COPD -: Asthma -: Diabetes uncontrolled -: HTN (has bottles, states he does not take meds) -: HLD (has bottles states he does not take meds) -: BPH Past Surgical History: Patient denies surgical history - Family History Family History: Reviewed- Non-Contributory - Social History Smoking Status: Light Tobacco smoker (1-9 cigarettes/day) Counseled patient to stop smoking for: less than 10 minutes Smoking therapy provided: No Patient receptive to therapy: No Alcohol use: No CD- Drugs: No Caffeine use: No Place of Residence: Home Review of Systems 10-point ROS is otherwise unremarkable Physical Examination - Physical Exam General: Alert, In no apparent distress, Oriented x3 HEENT: Atraumatic, Normocephalic, PERRLA, Mucous membr. moist/pink Neck: Supple, 2+ carotid pulse no bruit, JVD not distended Respiratory: Clear to auscultation bilaterally, Rhonchi/gurgles, Other (mild inspiratory expiratory wheezes) Cardiovascular: No edema, Normal pulses, Regular rate/rhythm Capillary refill: <2 Seconds Gastrointestinal: Hypoactive, Other (RLE ), Tenderness Musculoskeletal: No clubbing, No swelling Integumentary: No rashes, No breakdown Neurological: Normal speech, Normal strength at 5/5 x4 extr, Normal tone - Studies Laboratory Data (last 24 hrs) 11/16/22 11/16/22 20:24 20:24 WBC 19.10 H Hgb 14.8 Hct 42.5 Plt Count 259 Sodium 138 Potassium 3.7 BUN 12 Creatinine 1.21 Glucose 193 H Total Bilirubin 0.6 AST 16 ALT 20 Alkaline Phosphatase 86 Lipase 19 Assessment and Plan - Plan Assessment plan Appendicitis with leukocytosis Surgery consult, n.p.o. after midnight IV Zosyn, Trend WBC, IV fluids, as needed analgesics, antiemetics CT of the abdomen pelvis IMPRESSION: Acute appendicitis. Small volume fluid adjacent to the appendix tracking along the right paracolic gutter. No localized fluid collections or free air. WBCs 19.10, early left shift 88.1, BUN/creatinine, potassium sodium stable. Diabetes type 2 uncontrolled Glucose urea A1c, Accu-Cheks, sliding scale insulin UA 4+ glucose. A1c in the a.m. COPD Asthma Tobacco use Resume home nebs, Hypertension (denies but has bottles) Hyperlipidemia (denies but has bottles) Trend vital signs, lipid panel in the a.m. DVT per surgery Diet n.p.o. after midnight Full code . Discharge Plan: Home Plan to discharge in: 48 Hours - Advance Directives Does patient have a Living Will: No Does patient have a Durable POA for Healthcare: No - Code Status/Comfort Care Code Status: Full Code Physician Review: Patient Assessed, Agree with Above Assessment and Plan Critical Care: No Time Spent Managing Pts Care (In Minutes): 50
[2022-11-16] MEDS ORDERED: ONDANSETRON 4 MG/2 ML VIAL IV PRN (23:47)
[2022-11-17] MEDS ORDERED: ALBUTEROL 2.5 MG/3 ML NEB SOL NEB PRN (00:15)
[2022-11-17] MEDS ORDERED: IPRATROPIUM BROM 0.5MG/2.5ML NEB PRN (00:15)
[2022-11-17] MEDS: BUDESONIDE 0.25 MG/2 ML NEB NEB SCH ×3 (00:16→19:30)
[2022-11-17 01:23] VITALS: BMI 25.0
[2022-11-17 01:27] LABS: SARS-CoV-2 Antigen Rapid Res Negative (Negative)
[2022-11-17] MEDS: NA CHLORIDE 0.9% 1,000 ML IV SCH ×2 (01:57→11:48)
[2022-11-17] MEDS: FENTANYL CITR 100 MCG/2 ML IV PRN ×2 (02:52→06:18)
[2022-11-17 03:55] LABS: Protime INR 1.42
[2022-11-17 04:05] LABS: Absolute Lymphocytes (CBC) 1.6 K/uL (0.7-4.9); Lymphocytes % 10.3 % (15.3-44.8); MCV 89.3 fL (80-100); MPV 8.6 fL (7.6-11.3); Platelets 211 thou/uL (152-406); RBC Red Blood Cell Count 4.15 M/uL (4.33-5.43)
[2022-11-17 04:11] LABS: Albumin 3.2 g/dL (3.4-5.0); Bilirubin Total 0.7 mg/dL (0.2-1.0); Magnesium 2.4 mg/dL (1.6-2.4); Potassium 3.8 mEq/L (3.5-5.1)
[2022-11-17] MEDS ORDERED: KCL 20 MEQ/100 mL IVPB 20 MEQ/100 ML BAG IV SCH (07:00)
--- NOTE | 2022-11-17 07:00 | P.CNS ---
Date of Consult: 11/17/22 Reason for consult: Abdominal pain History of present illness: Patient is a 52-year-old gentleman comes into the emergency room last night with acute onset of right lower quadrant abdominal pain associated with nausea but no vomiting. Patient denies diarrhea or constipation. Patient denies dysuria or hematuria. Patient did have some fever and chills subjectively. Patient denies sore throat, runny nose, cough, headaches and chest pain. Pain is localized to the right lower quadrant and does not radiate. Review of systems: Otherwise unremarkable Past medical history: COPD, type II diabetes, high cholesterol, BPH and questionable history of hypertension Past surgical history: Hemorrhoidectomy, vasectomy and cataract surgery Allergies: Morphineno anaphylactic reaction Social history: Patient occasionally smokes, denies drinking alcohol Family history: Noncontributory Vital signs: Stable, afebrile Physical exam: Awake, alert and oriented x3 no masses Head and neck exam: Chest: Clear Heart: S1-S2 Abdomen: Soft, nondistended, positive bowel sounds, positive Rovsing's sign, positive right lower quadrant tenderness with rebound Extremity: Neurovascularly intact, nontender Neuro: Nonfocal Diagnostic data: Laboratory data shows leukocytosis and CT of the abdomen pelvis is consistent with acute appendicitis Assessment: Acute appendicitis Plan/recommendation: Admit, n.p.o., IV fluids, IV antibiotics and to the OR for laparoscopic appendectomy possible open. Patient understands risk, benefits and alternatives and agrees to procedure. CC:
[2022-11-17] MEDS ORDERED: propofoL 200 MG/20 ML VIAL IV ONE (07:03)
[2022-11-17] MEDS ORDERED: ROCURONIUM 50 MG/5 ML VIAL IV ONE (07:03)
[2022-11-17] MEDS ORDERED: KETOROLAC 30 MG/ML INJ ONE (07:03)
[2022-11-17] MEDS ORDERED: MIDAZOLAM HCL 2 MG/2 ML INJ ONE (07:03)
[2022-11-17] MEDS ORDERED: dexAMETHasone 10 MG/ML VIAL ONE (07:03)
[2022-11-17] MEDS ORDERED: FENTANYL CITR 100 MCG/2 ML ONE (07:03)
[2022-11-17] MEDS ORDERED: LIDOCAINE 2% MPF 5 ML VIAL ONE (07:04)
[2022-11-17] MEDS ORDERED: ONDANSETRON 4 MG/2 ML VIAL ONE (07:04)
[2022-11-17] MEDS ORDERED: GLYCOPYRROLATE 0.2 MG/ML SYR ONE ×2 (07:07→08:12)
[2022-11-17] MEDS ORDERED: EPHEDRINE SULF 50 MG/ML VIAL ONE (07:39)
[2022-11-17] MEDS ORDERED: NA CHLORIDE 0.9% 1,000 ML ONE (07:59)
--- NOTE | 2022-11-17 08:08 | P.OP ---
Date of Service: 11/17/22 Preop diagnosis: Acute appendicitis Postop diagnosis: Acute suppurative appendicitis Procedure performed: Laparoscopic appendectomy Surgeon: Beck Zavala MD Machine Cleaner: CARL Peterson Estimated blood loss: Minimal Specimen: Appendix Findings: As above Anesthesia: General Complications: None Drains: None Fluids and blood products: Nonapplicable Disposition: Recovery room Operative note: Patient brought to the OR and placed in supine position. General anesthesia begun. Patient prepped and draped in the usual sterile fashion. Marcaine 0.5% infiltrated locally. 15 blade used to make a 1 cm supraumbilical midline incision. Subcutaneous tissue divided and bleeding controlled cautery. Fascia identified and divided. #1 Vicryl stay suture placed. Peritoneal cavity entered with sharp and blunt dissection. 12 mm trocar placed into the peritoneal cavity under direct vision. Pneumoperitoneum established. Then two 5 mm trocars placed. 1 trocar placed in the suprapubic region under direct vision and the other 1 placed in the left lower quadrant under direct vision. Diagnostic laparoscopy revealed acute suppurative appendicitis in the right mid abdomen. There was minimal fluid around the appendix. Appendix appeared to be suppurative. Base of the appendix and mesoappendix clearly identified. Endo KEERTHI stapling device used to divide both structures. The appendix retrieved through the umbilicus via Endo Catch bag. Right lower quadrant irrigated as well as the pelvis no evidence of bleeding or bowel injury appreciated. All trocars removed under direct vision. Stay sutures tied to each other to reapproximate the fascial defect. Subcutaneous wounds irrigated. Bleeding controlled cautery. 3-0 chromic used to approximate subcutaneous tissue and close skin. Sterile dressing applied. Patient awakened and taken to recovery room in good general condition. CC:
[2022-11-17] MEDS ORDERED: ONDANSETRON 4 MG/2 ML VIAL IV PRN (08:10)
[2022-11-17] MEDS ORDERED: NEOSTIGMINE 1 MG/ML -10 ML VIAL ONE (08:12)
[2022-11-17] MEDS ORDERED: BUPIVACAINE 0.5% PF 10 ML VIAL ONE (08:45)
[2022-11-17] MEDS: PIPER TAZO 3.375 GM in NA CHLORIDE 0.9% 100 ML IV SCH ×2 (08:54→17:29)
[2022-11-17] MEDS ORDERED: POTASSIUM CL SA 10 MEQ TAB PO ONE (09:00)
[2022-11-17] MEDS: HYDROCODONE/APAP 7.5/325 MG TAB PO PRN (15:42)
--- NOTE | 2022-11-17 19:55 | P.PN ---
Subjective Date of Service: 11/17/22 Chief Complaint: Abdominal pain He underwent laparoscopic appendectomy this morning. He tolerated the procedure well. He reports that his pain is well controlled. He reports mild abdominal pain, but denies any nausea/vomiting. He denies any chest pain, palpitations, or shortness of breath. Review of Systems 10-point ROS is otherwise unremarkable Gastrointestinal: Abdominal Pain Physical Examination - Vital Signs Temperature: 97.5 F Blood Pressure: 115/70 Pulse: 76 Respirations: 16 Pulse Ox (%): 95 - Physical Exam General: Alert, In no apparent distress, Oriented x3 HEENT: Sclerae nonicteric Neck: JVD not distended Respiratory: Clear to auscultation bilaterally, Normal air movement Cardiovascular: No edema, Regular rate/rhythm, No gallops, No rubs, No murmurs Gastrointestinal: Normal bowel sounds, Soft and benign, Non-distended, No rebound, No guarding, Tenderness (right-sided) Musculoskeletal: No clubbing Integumentary: No rashes Neurological: Normal speech, Normal affect - Studies Laboratory Data (last 24 hrs) 11/17/22 11/17/22 11/17/22 02:48 02:48 02:48 WBC Hgb Hct Plt Count PT 15.6 H INR 1.42 Sodium 139 Potassium 3.8 BUN 13 Creatinine 1.05 Glucose 147 H Magnesium 2.4 Total Bilirubin 0.7 AST 11 L ALT 16 Alkaline Phosphatase 70 Triglycerides 77 Cholesterol 80 HDL Cholesterol 31 L Cholesterol/HDL Ratio 2.58 Lipase 11/17/22 11/16/22 11/16/22 02:48 20:24 20:24 WBC 15.60 H 19.10 H Hgb 12.8 L D 14.8 Hct 37.0 L 42.5 Plt Count 211 259 PT INR Sodium 138 Potassium 3.7 BUN 12 Creatinine 1.21 Glucose 193 H Magnesium Total Bilirubin 0.6 AST 16 ALT 20 Alkaline Phosphatase 86 Triglycerides Cholesterol HDL Cholesterol Cholesterol/HDL Ratio Lipase 19 Assessment And Plan - Plan # Sepsis likely secondary to Acute Suppurative Appendicitis He meets sepsis criteria based on HR > 90 bpm and WBC > 12,000, and the suspected source is suppurative appendicitis. - General Surgery consulted and spoke with Dr. Zavala - S/P laparascopic appendectomy this morning - he is doing well post- operatively - Sepsis order set was initiated - Initial Lactate was requested - Blood cultures requested - Broad spectrum antibiotics started: Piperacillin-Tazobactam - In regards to fluids: - 30 mL/kg of IV fluids was not administered given SBP > 90, MAP > 65 # Type II Diabetes Mellitus # Hypertension # Hyperlipidemia # Chronic Obstructive Pulmonary Disease # Asthma - Reconcile home medications once verified Roberth Donaldson M.D.
[2022-11-18] MEDS: NA CHLORIDE 0.9% 1,000 ML IV SCH (02:25)
[2022-11-18] MEDS ORDERED: FAMOTIDINE 20 MG/2 ML VIAL IV ONE (02:46)
[2022-11-18] MEDS: PIPER TAZO 3.375 GM in NA CHLORIDE 0.9% 100 ML IV SCH ×3 (02:53→17:07)
[2022-11-18 03:19] LABS: Absolute Lymphocytes (CBC) 0.8 K/uL (0.7-4.9); Hematocrit 37.6 % (39.6-49.0); Lymphocytes % 4.9 % (15.3-44.8); MCV 89.9 fL (80-100); MPV 8.3 fL (7.6-11.3); Platelets 228 thou/uL (152-406); RBC Red Blood Cell Count 4.18 M/uL (4.33-5.43)
[2022-11-18 03:34] LABS: Magnesium 3.2 mg/dL (1.6-2.4); Phosphorus 2.3 mg/dL (2.5-4.9); Potassium 4.8 mEq/L (3.5-5.1)
[2022-11-18] MEDS ORDERED: POTASS/SODIUM PHOSPHATE 1 PKT POWD.PACK PO SCH (08:00)
[2022-11-18] MEDS: BUDESONIDE 0.25 MG/2 ML NEB NEB SCH ×2 (08:00→20:05)
[2022-11-18] MEDS ORDERED: SODIUM PHOSPHATE 15 MM in NA CHLORIDE 0.9% 250 ML IV ONE (08:00)
[2022-11-18] MEDS ORDERED: CALCIUM CARBONATE CHEW 500MG TAB PO PRN (08:06)
[2022-11-18] MEDS: HYDROCODONE/APAP 7.5/325 MG TAB PO PRN ×3 (08:09→20:12)
--- NOTE | 2022-11-18 11:11 | PN ---
Date of Progress Note: 11/18/2022 Subjective: The patient is awake, alert. Complaining of some umbilical discomfort. No nausea, vomi ting. Tolerating his diet. Subjective: Vital Signs: Stable. He is afebrile. General: He is awake, alert, and oriented x3. Abdomen: Benign. Extremities: Dressings are clean, dry, intact Laboratory Data: Shows a white count of 16.9 with a left shift. Assessment: Status post lap appy for acute suppurative appendicitis. Recommendations: Continue IV antibiotics for another day. Recheck the white count tomorrow. If it is coming down toward normal, the patient will probably be discharged home in the morning on oral ant ibiotics. The patient is clinically doing well. Encourage ambulation, incentive spirometry, and DVT prophylaxis. Continue IV antibiotics. /MODL Voice ID: [id number] Report ID: [id number]
[2022-11-18] MEDS: FENTANYL CITR 100 MCG/2 ML IV PRN (17:07)
--- NOTE | 2022-11-18 20:44 | P.PN ---
Subjective Date of Service: 11/18/22 Chief Complaint: Abdominal pain POD#1 laparoscopic appendectomy. He reports persistent abdominal pain, graded 5- 6/10 in severity. He denies any nausea/vomiting. He denies any chest pain or shortness of breath. Review of Systems 10-point ROS is otherwise unremarkable Gastrointestinal: Abdominal Pain Physical Examination - Vital Signs Temperature: 97.9 F Blood Pressure: 128/66 Pulse: 77 Respirations: 18 Pulse Ox (%): 98 Assessment And Plan - Plan - Physical Exam General: Alert, In no apparent distress, Oriented x3 HEENT: Sclerae nonicteric Respiratory: Clear to auscultation bilaterally, Normal air movement Cardiovascular: No edema, Regular rate/rhythm, No gallops, No rubs, No murmurs Gastrointestinal: Normal bowel sounds, Soft, Non-distended, No rebound, No guarding, Tenderness (minimal right-sided), surgical site covered in clean dressing Neurological: Normal speech, Normal affect # Sepsis likely secondary to Acute Suppurative Appendicitis He meets sepsis criteria based on HR > 90 bpm and WBC > 12,000, and the suspected source is suppurative appendicitis. - General Surgery consulted and spoke with Dr. Zavala - S/P laparascopic appendectomy on 11/17/2022- he is doing well post- operatively, but WBC count is uptrending - Sepsis order set was initiated - Initial Lactate was 1.4 - Blood cultures with NGTD - Broad spectrum antibiotics started: Piperacillin-Tazobactam - In regards to fluids: - 30 mL/kg of IV fluids was not administered given SBP > 90, MAP > 65 # Type II Diabetes Mellitus # Hypertension # Hyperlipidemia # Chronic Obstructive Pulmonary Disease # Asthma - Reconcile home medications once verified Roberth Donaldson M.D.
[2022-11-19] MEDS: PIPER TAZO 3.375 GM in NA CHLORIDE 0.9% 100 ML IV SCH ×2 (00:25→08:08)
[2022-11-19] MEDS: HYDROCODONE/APAP 7.5/325 MG TAB PO PRN ×3 (00:32→11:07)
[2022-11-19 03:06] LABS: Absolute Lymphocytes (CBC) 1.8 K/uL (0.7-4.9); Hematocrit 35.7 % (39.6-49.0); MCV 90.5 fL (80-100); MPV 8.5 fL (7.6-11.3); Platelets 222 thou/uL (152-406); RBC Red Blood Cell Count 3.94 M/uL (4.33-5.43)
[2022-11-19 03:27] LABS: Phosphorus 1.7 mg/dL (2.5-4.9); Potassium 3.7 mEq/L (3.5-5.1)
[2022-11-19] MEDS: BUDESONIDE 0.25 MG/2 ML NEB NEB SCH (07:30)
[2022-11-19] MEDS ORDERED: POTASSIUM PHOS IN 0.9 % NACL 15 MMOL/250 ML BAG IV ONE (09:00)
[2022-11-19 10:30] VITALS: BP 124/67; TEMP 97.9
--- NOTE | 2022-11-19 11:50 | PN ---
Date of Progress Note: 11/19/2022 Subjective: The patient is awake, alert. States that he feels bloated. His vitals are stable. He is afebrile. Laboratory Data: Reviewed. His white count is 13.2 and left shift has improved a little bit. Objective: His abdomen is distended with hypoactive bowel sounds. No peritonitis. Assessment: Status post laparoscopic appendectomy with probable ileus. Recommendations: Continue IV antibiotics, IV fluids. We will check an abdominal x-ray and make furt her recommendation after that is done, but appears to be an ileus. I have encouraged the patient to walk and use incentive spirometry. /MODL Voice ID: [id number] Report ID: [id number]
--- NOTE | 2022-11-19 12:12 | RAD REPORT ---
EXAM DESCRIPTION: RAD - Abdomen 1 View (KUB) - 11/19/2022 12:07 pm CLINICAL HISTORY: Abdomen pain FINDINGS: The bowel gas pattern is unremarkable. No significant abnormal calcification is displayed
--- NOTE | 2022-11-19 14:08 | RAD REPORT ---
EXAM DESCRIPTION: CT - Abdomen Pelvis Wo Contrast - 11/19/2022 1:30 pm CLINICAL HISTORY: eval for free air/ileus. COMPARISON: Abdomen Pelvis W Contrast dated 11/16/2022 TECHNIQUE: Thin cut axial CT imaging of the abdomen and pelvis was performed without IV contrast. Mu ltiplanar reformats were generated and reviewed. All CT scans are performed using dose optimization technique as appropriate and may include automated exposure control or mA/KV adjustment according to patient size. FINDINGS: Trace right pleural effusion. The liver, spleen, and adrenal glands show no suspicious findings. Nonspecific fat stranding adjacent to the gallbladder wall, and extending towards the cortney hepatis and upper retroperitoneum. Similar fat stranding seen along the right paracolic gutter and adjacent to the cecum, with a suture line in the location of the base of the appendix Trace free fluid layering in the pelvis. Symmetric renal contour, without suspicious parenchymal findings within limits of noncontrast techniq ue. No evidence of radiopaque calculi or hydroureteronephrosis. No dilated bowel loops or bowel wall thickening. No free air, localized collections, or inflammatory stranding. No hernia, mass or bulky lymphadenopathy. The urinary bladder is without significant findi ng. No suspicious bony findings. IMPRESSION: Postsurgical changes at the base of the appendix. Nonspecific fat stranding extends into the retroperitoneal. Trace free fluid in the pelvis. Similar findings are present adjacent to the gallbladder bed. This is nonspecific. Please correlate c linically for evidence of acute cholecystitis. Trace right pleural effusion.
[2022-11-19 15:41] LABS: Phosphorus 2.3 mg/dL (2.5-4.9); Potassium 4.1 mEq/L (3.5-5.1)
--- NOTE | 2022-11-19 15:50 | P.DS ---
Admission Date: 11/17/22 Discharge Date: 11/19/22 Disposition: ROUTINE DISCHARGE Discharge Condition: GOOD Reason for Admission: Appendicitis Consultations: 1. General Surgery Procedures: - 11/17/2022 - Laparoscopic appendectomy Hospital Course: DIAGNOSES: # Sepsis likely secondary to Acute Suppurative Appendicitis # Type II Diabetes Mellitus # Hypertension # Hyperlipidemia # Chronic Obstructive Pulmonary Disease # Asthma HOSPITAL COURSE: Mr. Frank Samuel is a pleasant 52 year old male with a past medical history significant for type II diabetes mellitus, hypertension, hyperlipidemia, chronic obstructive pulmonary disease, and asthma who was admitted to the [facility] on 11/17/2022 for abdominal pain. He was admitted to the Medicine service. Upon further evaluation, his CT abdomen/pelvis revealed, "acute appendicitis. Small volume fluid adjacent to the appendix tracking along the right paracolic gutter. No localized fluid collections or free air." General Surgery was consulted and he was evaluated by Dr. Zavala. On 11/17/2022, he underwent laparoscopic appendectomy and tolerated the procedure well. He was continued on IV antibiotics, with improvement in his symptoms. This morning, he stated that he felt much better and would like to be discharged home; however, he was experiencing some bloating. A KUB revealed, "the bowel gas pattern is unremarkable. No significant abnormal calcification is displayed." A follow-up CT abdomen/pelvis was obtained, which revealed, "postsurgical changes at the base of the appendix. Nonspecific fat stranding extends into the retroperitoneal. Trace free fluid in the pelvis. Similar findings are present adjacent to the gallbladder bed. This is nonspecific. Please correlate clinically for evidence of acute cholecystitis. Trace right pleural effusion." I reviewed these findings with Dr. Zavala, who stated that these findings are likely secondary to the intra-operative intra-abdominal irrigation. He does not feel that Mr. Samuel has acute cholecystitis. He has cleared him for discharge with amoxicillin-clavulanate, hydrocodone-acetaminoph en, and docusate. On 11/19/2022, he was seen on rounds and deemed medically stable for discharge. He was discharged with instructions to schedule follow-up appointments with his PCP (Dr. Verdin) and with General Surgery (Dr. Zavala). He was provided prescriptions for amoxicillin-clavulanate and hydrocodone-acetaminophen. He and his were given the opportunity to ask questions and reported no further questions. Furthermore, all questions were answered to the best of my ability. Prior to the controlled substance prescription, a PDMP review was conducted. Over the last 2 years, he has received 0 controlled prescriptions from 0 providers to 0 pharmacies. His opioid overdose risk score is 0. A copy of this discharge summary will be sent to the above providers to facilitate continuity of care. Today, I personally spent 25 minutes on his case, of which greater than 50% of the time was spent in patient education, counseling, and coordination of care as described above. - Physical Exam General: Alert, In no apparent distress, Oriented x3 HEENT: Sclerae nonicteric Respiratory: Clear to auscultation bilaterally, Normal air movement Cardiovascular: No edema, Regular rate/rhythm, No murmurs Gastrointestinal: Normal bowel sounds, Soft, minimal distention, No rebound, No guarding, Tenderness (minimal right-sided), surgical site covered in clean dressing Neurological: Normal speech, Normal affect Vital Signs/Physical Exam: Temp Pulse Resp BP Pulse Ox 97.9 F 65 22 H 124/67 95 11/19/22 08:00 11/19/22 08:00 11/19/22 12:07 11/19/22 08:00 11/19/22 12:07 Laboratory Data at Discharge: WBC 13.20 thou/uL (4.3-10.9) H 11/19/22 02:30 Hgb 12.2 g/dL (13.6-17.9) L 11/19/22 02:30 Hct 35.7 % (39.6-49.0) L 11/19/22 02:30 Plt Count 222 thou/uL (152-406) 11/19/22 02:30 PT 15.6 SECONDS (9.5-12.5) H 11/17/22 02:48 INR 1.42 11/17/22 02:48 Sodium 142 mEq/L (136-145) D 11/19/22 02:30 Potassium 4.1 mEq/L (3.5-5.1) 11/19/22 14:58 BUN 22 mg/dL (7-18) H 11/19/22 02:30 Creatinine 1.17 mg/dL (0.70-1.30) 11/19/22 02:30 Glucose 144 mg/dL (74-106) H 11/19/22 02:30 Phosphorus 2.3 mg/dL (2.5-4.9) L 11/19/22 14:58 Magnesium 3.2 mg/dL (1.6-2.4) H 11/18/22 02:45 Total Bilirubin 0.7 mg/dL (0.2-1.0) 11/17/22 02:48 AST 11 U/L (15-37) L 11/17/22 02:48 ALT 16 U/L (16-61) 11/17/22 02:48 Alkaline Phosphatase 70 U/L (45-117) 11/17/22 02:48 Triglycerides 77 mg/dL (<150) 11/17/22 02:48 Cholesterol 80 mg/dL (<200) 11/17/22 02:48 HDL Cholesterol 31 mg/dL (40-60) L 11/17/22 02:48 Cholesterol/HDL Ratio 2.58 11/17/22 02:48 Lipase 19 U/L (13-75) 11/16/22 20:24 Home Medications: Atorvastatin Calcium 20 mg PO DAILY 11/17/22 Empagliflozin/Metformin HCl [Synjardy Xr 10-1,000 mg Tablet] 1 tab PO DAILY WITH BREAKFAST 11/17/22 Isosorbide Mononitrate [Isosorbide Mononitrate ER] 1 tab PO DAILY 11/17/22 Sitagliptin Phosphate [Januvia] 1 tab PO DAILY 11/17/22 Albuterol Inhaler [Ventolin Inhaler*] 1 puff IH Q6H PRN 11/18/22 Aspirin 81 mg PO DAILY 11/18/22 Fluticasone/Umeclidin/Vilanter [Trelegy Ellipta 100-62.5-25] 1 each IH DAILY 11/18/22 Tamsulosin [Flomax*] 0.4 mg PO DAILY 11/18/22 Amox/Clavulanate [Augmentin 875-125 Tab] 875 mg PO BID 7 Days #14 tab 11/19/22 Docusate Sodium 100 mg PO BID 14 Days #30 11/19/22 Hydrocodone/Acetaminophen [Hydrocodon-Acetaminophen 5-325] 1 tab PO Q6H PRN 3 Days #12 tab 11/19/22 New Medications: Amox/Clavulanate [Augmentin 875-125 Tab] 875 mg PO BID 7 Days #14 tab Docusate Sodium 100 mg PO BID 14 Days #30 Hydrocodone/Acetaminophen [Hydrocodon-Acetaminophen 5-325] 1 tab PO Q6H PRN 3 Days #12 tab PRN Reason: Pain Scale 8-10 (Severe) Physician Discharge Instructions: 1. Please call and schedule a follow-up appointment with your PCP (Dr. Sridhar Verdin) in 3-5 days - Your blood work showed mild anemia. Please discuss further evaluation, including a colonoscopy, with your PCP 2. Please call and schedule a follow-up appointment with General Surgery (Dr. Zavala) in 5-7 days Medication changes: 1. Please take amoxicillin-clavulanate 1 tablet, two times per day 2. Please take Colace (docusate) 100 mg twice per day - Please do not drive or operate heavy machinery while taking pain medication - Please follow-up with your PCP for medication refills/adjustments Diet: Regular Activity: No lifting more than 10 lbs Followup: NONE,NONE [Primary Care Provider] - Beck Zavala MD [ACTIVE - CAN ADMIT] - Time spent managing pt's care (in minutes): 25
[2022-11-19 15:55] VITALS: O2SAT 95
[2022-11-19] MEDS ORDERED: POTASS/SODIUM PHOSPHATE 1 PKT POWD.PACK PO ONE (16:22)
== END 2022-11-19 16:17 | disposition home or self-care (01) | DRG 854 ==
LOC: ER 19:57 → ERHOLD 23:46 → 2ND 11-17 00:07 → OBSVTOIN 11-17 13:03
PROVIDERS: ADMIT Hospitalist; ATTEND Internal Medicine
PROC: 0DTJ4ZZ Resection of Appendix, Percutaneous Endoscopic Approach (ICD-10-PCS; principal; 2022-11-17 07:00)
DX: A41.9 Sepsis, unspecified organism (principal); K35.80 Unspecified acute appendicitis; K91.30 Postprocedural intestinal obstruction, unspecified as to partial versus complete; Y83.8 Other surgical procedures as the cause of abnormal reaction of the patient, or of later complication, without mention of misadventure at the time of the procedure; Y92.239 Unspecified place in hospital as the place of occurrence of the external cause; I95.2 Hypotension due to drugs; T40.2X5A Adverse effect of other opioids, initial encounter; J44.9 Chronic obstructive pulmonary disease, unspecified; E11.9 Type 2 diabetes mellitus without complications; I10 Essential (primary) hypertension; D64.9 Anemia, unspecified; E78.00 Pure hypercholesterolemia, unspecified; E78.5 Hyperlipidemia, unspecified; N40.0 Benign prostatic hyperplasia without lower urinary tract symptoms; F17.210 Nicotine dependence, cigarettes, uncomplicated; Z71.6 Tobacco abuse counseling; Z79.899 Other long term (current) drug therapy; Z88.5 Allergy status to narcotic agent; Z98.52 Vasectomy status; Z20.822 Contact with and (suspected) exposure to COVID-19
CPT/HCPCS: 36415; 74018; 74176; 74177; 80048; 80053; 80061; 81003; 82077; 82947; 83036; 83605; 83690; 83735; 84100; 84132; 85025; 85610; 87040; 87811; 88304; 94010; 94640; 96361; 96365; 96375; 99285; G0378; J1100; J2001; J2250; J2405; J2543; J2704; J2710; J3010; J7030; J7050; J7634; Q9967